=== PATIENT | female | born 1990 | race American Indian/Alaskan Native ===

== ENCOUNTER 2018-03-18 16:33 | Emergency (ER) | payer SELFPAY ==
[2018-03-18] MEDS ORDERED: REGLAN IV ONE (17:48)
[2018-03-18] MEDS ORDERED: BENADRYL IV ONE (17:48)
[2018-03-18] MEDS ORDERED: TORADOL IV ONE (17:48)
--- NOTE | 2018-03-18 17:50 | Emergency Department Report ---
Blank Doc - Documentation Documentation: 27 yo female with a past medical history of migraines presents to the hospital with right-sided unilateral headache since yesterday. Pain is 7/10 in intensity , constant, positive reported light sensitivity. Denies nausea, vomiting, current blurred vision, focal weakness or focal numbness. No reports of fever or neck pain or head injury. Last CAT scan head at age 15 was normal. This headache is similar to previous migraines however, it was not alleviated by her Excedrin Migraine medication nonfocal neuro exam no nuncal rigidity iv benadryl, toradol, reglan ordered midlevel to follow
--- NOTE | 2018-03-18 20:03 | Emergency Department Report ---
ED Headache HPI - General Chief Complaint: Headache Stated Complaint: HEADACHE Time Seen by Provider: 03/18/18 17:35 Source: patient, family Exam Limitations: no limitations - History of Present Illness Initial Comments: 27 yo female with a past medical history of migraines presents to the hospital with right-sided unilateral headache since yesterday. Pain is 7/10 in intensity , constant, positive reported light sensitivity. Denies nausea, vomiting, current blurred vision, focal weakness or focal numbness. No reports of fever or neck pain or head injury. Last CAT scan head at age 15 was normal. This headache is similar to previous migraines however, it was not alleviated by her Excedrin Migraine medication. She denies any head trauma. She does not have a primary care nor does she have a neurologist at present and would like to be referred to primary care doctor. Timing/Duration: constant Quality: severe, achy, throbbing Head Injury Location: frontal (right), temporal (right temporal), parietal ( right parietal) Recent Head Trauma: chronic headaches Modifying Factors: improves with: exposure to light, movement Associated Symptoms: denies: confusion, fatigue, facial pain, fever/chills, flushing, loss of consciousness, nausea/vomiting, nasal congestion, nasal drainage, numbness in legs/feet, rash, seizures, sinus infection, stiff neck, vision changes, weakness Allergies/Adverse Reactions: Allergies No Known Allergies Allergy (Unverified 03/18/18 16:45) Home Medications: Ambulatory Orders Butalb/Acetamin/Caff 50-325-40 [Fioricet] 1 tab PO Q6HR PRN #16 tab 03/18/18 Ondansetron [Zofran Odt] 4 mg PO Q6H PRN #16 tab.rapdis 03/18/18 ED Review of Systems ROS: Stated complaint: HEADACHE Other details as noted in HPI Constitutional: denies: chills, fever Eyes: eye pain, other (positive sensitivity to light). denies: as per HPI, eye discharge, vision change ENT: denies: ear pain, throat pain, congestion Respiratory: denies: cough, shortness of breath, SOB with exertion, SOB at rest , stridor, wheezing Cardiovascular: denies: chest pain, palpitations, edema, syncope Gastrointestinal: denies: abdominal pain, nausea, vomiting, diarrhea, hematemesis, hematochezia Genitourinary: denies: urgency, dysuria, hematuria, discharge Musculoskeletal: denies: back pain, joint swelling, arthralgia, myalgia Skin: denies: rash, lesions Neurological: headache. denies: weakness, numbness, paresthesias, confusion, abnormal gait, vertigo ED Past Medical Hx - Past Medical History Previous Medical History?: No - Surgical History Past Surgical History?: No - Family History Family history: hypertension - Social History Smoking Status: Never Smoker Substance Use Type: None - Medications Home Medications: Home Medications Medication Instructions Recorded Confirmed Last Taken Type Butalb/Acetamin/Caff 50-325-40 1 tab PO Q6HR PRN #16 tab 03/18/18 Unknown Rx [Fioricet] Ondansetron [Zofran Odt] 4 mg PO Q6H PRN #16 tab.rapdis 03/18/18 Unknown Rx ED Physical Exam - General Limitations: No Limitations General appearance: alert, in no apparent distress - Head Head exam: Present: atraumatic, normocephalic, normal inspection, other (normal exam) - Eye Eye exam: Present: normal appearance, PERRL, EOMI. Absent: scleral icterus, conjunctival injection, nystagmus, periorbital swelling, periorbital tenderness Pupils: Present: normal accommodation - Expanded Eye Exam Expanded Eyelids: Normal Inspection: Right (bilateral) Pupils: Regular, Round: Bilateral, Reactive: Bilateral Sclera/Conjunctival: Normal Inspection: Bilateral Anterior chamber: Normal Inspection: Bilateral Posterior chamber: Normal Inspection: Bilateral Visual acuity (R) = 20/: 30 (20/20 both eyes) Visual acuity (L) = 20/: 30 - ENT ENT exam: Present: normal exam, normal orophraynx, mucous membranes moist, TM's normal bilaterally, normal external ear exam, other (nasal mucosa normal exam. No frontomaxillary sinus tenderness) - Neck Neck exam: Present: normal inspection, full ROM, other (no C-spine tenderness). Absent: tenderness, meningismus, lymphadenopathy - Respiratory Respiratory exam: Present: normal lung sounds bilaterally. Absent: respiratory distress, chest wall tenderness - Cardiovascular Cardiovascular Exam: Present: regular rate, normal rhythm, normal heart sounds. Absent: systolic murmur, diastolic murmur - GI/Abdominal GI/Abdominal exam: Present: soft, normal bowel sounds. Absent: distended, tenderness - Extremities Exam Extremities exam: Present: normal inspection, full ROM, normal capillary refill , other (No cce. + 2 pulses in all extremities, no neurovascular compromise). Absent: tenderness, pedal edema, joint swelling, calf tenderness - Back Exam Back exam: Present: normal inspection, full ROM, other (ambulates without any difficulties). Absent: tenderness, CVA tenderness (R), CVA tenderness (L), muscle spasm, paraspinal tenderness, vertebral tenderness, rash noted - Neurological Exam Neurological exam: Present: alert, oriented X3, normal gait, reflexes normal. Absent: motor sensory deficit - Expanded Neurological Exam Expanded Neurological exam: Absent: innattentive, memory loss-remote event, memory loss- recent event, ataxia, receptive aphasia, tremor, protecting the airway Patient oriented to: Present: person, place, time Speech: Present: fluid speech Cranial nerves: EOM's Intact: Normal, Gag Reflex: Normal, Tongue Deviation: Normal, Nystagmus: Normal, Facial Sensation: Normal Cerebellar function: Romberg: Normal Upper motor neuron: Pronator Drift: Normal, Sensory Extinction: Normal Sensory exam: Upper Extremity Light Touch: Normal, Upper Extremity Temperature: Normal, UE 2 Point Discrimination: Normal, Lower Extremity Light Touch: Normal, Lower Extremity Temperature: Normal, LE 2 Point Discrimination: Normal Motor strength exam: RUE: 5, LUE: 5, RLE: 5, LLE: 5 Best Eye Response (Mclean): (4) open spontaneously Best Motor Response (Mclean): (6) obeys commands Best Verbal Response (Arslan): (5) oriented Mclean Total: 15 - Psychiatric Psychiatric exam: Present: normal affect, normal mood - Skin Skin exam: Present: warm, dry, intact, normal color. Absent: rash ED Course Vital Signs 03/18/18 03/18/18 03/18/18 16:45 18:16 18:42 Temperature 99.2 F Pulse Rate 72 Respiratory 18 18 18 Rate Blood Pressure 156/86 O2 Sat by Pulse 99 Oximetry - Reevaluation(s) Reevaluation #1: 03/18/18 20:10 Patient given Benadryl 50 mg IV, Toradol 30 mg IV and Reglan 10 mg IV and emergency room and she voiced complete relief of her headache. No nausea. Denies any eye pain. She says she feels much better and her pain is down to 1/ 10. ED Medical Decision Making - Medical Decision Making This is a 27-year-old female here report that she is getting migraine headache and she has a flareup. She is here with her family member or friend. She does not have a primary care neurologist at present but her last CT scan was at age [age] years old. She reports that this is normal. Patient was screened by Dr. Lyons medication orders placed. I saw and examined patient and her physical findings were normal to include her neck, back and neurologic exam. She was given Toradol 30 mg IV, Reglan 10 mg IV and Benadryl 50 mg IV and she was relief of her headache. She has no nausea or vomiting. her eye pain is resolved. Patient and vital signs are stable she is afebrile and she is feeling better and nontoxic in appearance. Discussed the patient her diagnosis and treatment plan and I told that she needs to follow-up at some [facility] for primary care and also Dr. Locke was a neurologist. I discussed with her she needs to follow up in 3-5 days and or to return to the emergency room if her headache and symptoms return. He is in agreement and patient discharged home with prescription for Zofran and Fioricet. Critical care attestation.: If time is entered above; I have spent that time in minutes in the direct care of this critically ill patient, excluding procedure time. ED Disposition Clinical Impression: Pain, eye, right Headache Qualifiers: Headache type: unspecified Headache chronicity pattern: episodic headache Intractability: not intractable Qualified Code(s): R51 - Headache Nausea & vomiting Qualifiers: Vomiting type: unspecified Vomiting Intractability: non-intractable Qualified Code(s): R11.2 - Nausea with vomiting, unspecified Disposition: DC-01 TO HOME OR SELFCARE Is pt being admited?: No Does the pt Need Aspirin: No Condition: Stable Instructions: Eye Pain (ED), Acute Headache (ED), Acute Nausea and Vomiting (ED ) Additional Instructions: Please follow up with [facility] for primary care Return to the emergency room if his symptoms worsen. Take Fioricet for headache and Zofran for nausea See referral to neurologist. Prescriptions: Butalb/Acetamin/Caff 50-325-40 [Fioricet] 1 tab PO Q6HR PRN #16 tab PRN Reason: Headache Ondansetron [Zofran Odt] 4 mg PO Q6H PRN #16 tab.rapdis PRN Reason: Nausea And Vomiting Referrals: [facility] [Outside] - 03/21/18 PRIMARY CAREMD [Primary Care Provider] - 03/21/18 SHUN LOCKE MD [Staff Physician] - 03/21/18 Forms: Work/School Release Form(ED)
[2018-03-18 20:22] VITALS: BP 118/72
== END 2018-03-18 20:20 | disposition home or self-care (01) ==
LOC: ED 16:33
DX: R51 Headache (principal); R11.2 Nausea with vomiting, unspecified
CPT/HCPCS: 96374; 96375; 99282; J1200; J1885; J2765

== ENCOUNTER 2018-10-15 10:06 | Emergency (ER) | payer SELFPAY ==
[2018-10-15 10:14] VITALS: BP 173/97
[2018-10-15 11:29] LABS: HCG Qualitative,Urine Negative (Negative)
[2018-10-15] MEDS ORDERED: TORADOL IV STA (12:12)
[2018-10-15] MEDS ORDERED: NACL 0.9% 1000 ML 1,000 ML IV ONE (12:12)
[2018-10-15] MEDS ORDERED: BENADRYL IV STA (12:12)
[2018-10-15] MEDS ORDERED: REGLAN IV STA (12:12)
--- NOTE | 2018-10-15 12:21 | Emergency Department Report ---
ED Headache HPI - General Chief Complaint: Headache Stated Complaint: MIGRANES Time Seen by Provider: 10/15/18 10:36 - History of Present Illness Allergies/Adverse Reactions: Allergies No Known Allergies Allergy (Verified 10/15/18 10:08) Home Medications: Ambulatory Orders Butalb/Acetamin/Caff 50-325-40 [Fioricet] 1 tab PO Q6HR PRN #16 tab 03/18/18 Ondansetron [Zofran Odt] 4 mg PO Q6H PRN #16 tab.rapdis 03/18/18 ALBUTEROL Inhaler (OR & NICU) [ProAir HFA Inhaler] 2 puff IH QID PRN #1 inhalation 06/07/18 Brompheniramine/Pseudoephed/Dm [Bromfed Dm Cough Syrup] 5 ml PO Q6HR #120 syrup 06/07/18 ED Review of Systems ROS: Stated complaint: MIGRANES Other details as noted in HPI Constitutional: denies: chills, fever Eyes: denies: eye pain, eye discharge, vision change ENT: denies: ear pain, throat pain Respiratory: denies: cough, shortness of breath, wheezing Cardiovascular: denies: chest pain, palpitations Endocrine: no symptoms reported Gastrointestinal: denies: abdominal pain, nausea, diarrhea Genitourinary: denies: urgency, dysuria, discharge Musculoskeletal: denies: back pain, joint swelling, arthralgia Skin: denies: rash, lesions Neurological: headache. denies: weakness, paresthesias Psychiatric: denies: anxiety, depression Hematological/Lymphatic: denies: easy bleeding, easy bruising ED Past Medical Hx - Past Medical History Previous Medical History?: No - Surgical History Past Surgical History?: No - Social History Smoking Status: Never Smoker Substance Use Type: None - Medications Home Medications: Home Medications Medication Instructions Recorded Confirmed Last Taken Type Butalb/Acetamin/Caff 50-325-40 1 tab PO Q6HR PRN #16 tab 03/18/18 Unknown Rx [Fioricet] Ondansetron [Zofran Odt] 4 mg PO Q6H PRN #16 tab.rapdis 03/18/18 Unknown Rx ALBUTEROL Inhaler (OR & NICU) 2 puff IH QID PRN #1 inhalation 06/07/18 Unknown Rx [ProAir HFA Inhaler] Brompheniramine/Pseudoephed/Dm 5 ml PO Q6HR #120 syrup 06/07/18 Unknown Rx [Bromfed Dm Cough Syrup] ED Physical Exam - General Limitations: No Limitations General appearance: alert, in no apparent distress - Head Head exam: Present: atraumatic, normocephalic - Eye Eye exam: Present: normal appearance, PERRL, other (neg fundus exam). Absent: conjunctival injection, nystagmus Pupils: Present: normal accommodation - ENT ENT exam: Present: normal exam, normal orophraynx, mucous membranes moist - Neck Neck exam: Present: normal inspection, full ROM - Respiratory Respiratory exam: Present: normal lung sounds bilaterally. Absent: respiratory distress, wheezes, rales, chest wall tenderness, accessory muscle use - Cardiovascular Cardiovascular Exam: Present: regular rate, normal rhythm. Absent: systolic murmur, diastolic murmur, rubs, gallop - GI/Abdominal GI/Abdominal exam: Present: soft, normal bowel sounds - Extremities Exam Extremities exam: Present: normal inspection - Back Exam Back exam: Present: normal inspection. Absent: CVA tenderness (R), CVA tenderness (L) - Neurological Exam Neurological exam: Present: alert, oriented X3, CN II-XII intact, normal gait - Psychiatric Psychiatric exam: Present: normal affect, normal mood - Skin Skin exam: Present: warm, dry, intact, normal color. Absent: rash ED Course Vital Signs 10/15/18 10:12 Temperature 97.8 F Pulse Rate 77 Respiratory 16 Rate Blood Pressure 173/97 [Left] O2 Sat by Pulse 100 Oximetry Critical care attestation.: If time is entered above; I have spent that time in minutes in the direct care of this critically ill patient, excluding procedure time. ED Disposition Clinical Impression: Cephalgia Disposition: DC-01 TO HOME OR SELFCARE Is pt being admited?: No Does the pt Need Aspirin: No Condition: Stable Instructions: Acute Headache (ED) Referrals: FERNANDO PAUL MD [Primary Care Provider] - 3-5 Days
== END 2018-10-15 12:30 | disposition left against medical advice (07) ==
LOC: ED 10:06
DX: R51 Headache (principal)
CPT/HCPCS: 81025; 99283